=== PATIENT | male | born 1960 | race African-American/Black ===

== ENCOUNTER 2022-05-03 14:45 | Emergency (ER) | payer OTHER ==
[2022-05-03 15:15] VITALS: BP 139/92; PULSE 64; RESP 20; TEMP 98; BMI 26.6
== END 2022-05-03 19:52 | disposition home or self-care (01) ==
LOC: JER 14:45
DX: U07.1 COVID-19 (principal)
CPT/HCPCS: 0241U-QW; 71045-TC-FY; 93005; 93010; 99285-25